=== PATIENT | male | born 1940 | race Caucasian/White ===

== ENCOUNTER 2016-10-07 06:34 | Day surgery (SDC) | payer MEDICARE, MEDICAID ==
[2016-10-07] VITALS (29 sets, daily range): BP systolic 119–165; BP diastolic 69–86; PULSE 62–78; RESP 10–20; Ht 170.2 cm; Wt 94.0 kg
[~2016-10-07] VITALS: Ht 170.2 cm; Wt 94.0 kg
[2016-10-07] MEDS ORDERED: FAMOTIDINE 20 MG TAB PO SCH (07:00)
[2016-10-07] MEDS ORDERED: DIAZEPAM 5 MG TAB PO SCH (07:00)
[2016-10-07] MEDS ORDERED: DIPHENHYDRAMINE 50 MG CAP PO SCH (07:00)
[2016-10-07] MEDS ORDERED: ASPI325T4 PO (07:32)
[2016-10-07] MEDS ORDERED: BENA40TA41 PO (07:32)
[2016-10-07] MEDS ORDERED: CARV25TA79 PO (07:32)
[2016-10-07] MEDS ORDERED: CRES10 PO (07:32)
[2016-10-07] MEDS ORDERED: DOXA4TAB3 PO (07:32)
[2016-10-07] MEDS ORDERED: CILO100T PO (07:33)
[2016-10-07] MEDS ORDERED: HYDR-3672 PO (07:33)
[2016-10-07] MEDS ORDERED: SOD CHLORIDE 0.45% 1,000 ML IV SCH (08:00)
[2016-10-07 08:03] LABS: ADD SCAN DIFF NO
[2016-10-07 08:09] LABS: BASOPHILS % 0.4 % (0.0-2.0); EOSINOPHILS # 0.1 10^3/ul (0.0-0.5); EOSINOPHILS % 1.1 % (0.0-7.0); HEMOGLOBIN 11.6 g/dl (14.0-18.0); LYMPHOCYTES # 1.1 10^3/ul (0.8-2.9); LYMPHOCYTES % 10.8 % (15.0-51.0); MEAN CORPUSCULAR HEMOGLOBIN 29.1 pg (29.0-33.0); MEAN CORPUSCULAR HGB CONC 32.2 g/dl (32.0-37.0); MEAN CORPUSCULAR VOLUME 90.2 fl (82.0-101.0); MEAN PLATELET VOLUME 9.3 fl (7.4-10.4); MONOCYTES % 9.6 % (0.0-11.0); NEUTROPHIL # 7.8 10^3/ul (1.6-7.5); NEUTROPHILS % 77.5 % (39.0-77.0); PLATELET COUNT 201 10^3/UL (140-415); RED BLOOD COUNT 3.99 10^6/ul (4.70-6.10); RED CELL DISTRIBUTION WIDTH 14.7 % (11.5-14.5); WHITE BLOOD COUNT 10.1 10^3/ul (4.8-10.8)
--- NOTE | 2016-10-07 08:18 | RADRPT ---
PROCEDURE: XR Chest. CLINICAL INDICATION: Preoperative TECHNIQUE: Single portable view of the chest was obtained COMPARISON: 10/10/2008 FINDINGS: The heart is enlarged. There is a left-sided pacemaker in place. There is mild left lower lobe atelectasis. The lungs are otherwise clear. There is no pleural effusion or pneumothorax. RPTAT: AA IMPRESSION: Moderate Cardiomegaly. Mild left lower lobe atelectasis. .Bobby Steen MD, MD Date Time Electronically viewed and signed by .Bobby Steen MD, on 10/07/2016 08:18 .S/
[2016-10-07 08:25] LABS: CHOL/HDL RATIO 2.8 RATIO
[2016-10-07 08:29] LABS: CALCIUM 8.3 mg/dl (8.4-10.2); CREATININE 1.16 mg/dl (0.61-1.24); POTASSIUM 3.8 mmol/L (3.5-5.1)
[2016-10-07 08:40] LABS: INR 1.03; PROTIME 13.5 Sec (12.2-14.2); PT RATIO 1.1
[2016-10-07 08:41] LABS: PARTIAL THROMBOPLASTIN TIME 28.4 Sec (25.0-35.0)
[2016-10-07] MEDS ORDERED: HEPARIN 1000 UNITS/ML 10 ML INJ ONE (09:37)
[2016-10-07] MEDS ORDERED: FENTAnyl 50 MCG/ML VIAL ONE (09:37)
[2016-10-07] MEDS ORDERED: VERAPAMIL 5 MG INJ ONE (09:37)
[2016-10-07] MEDS ORDERED: IODIXANOL LOCM 100 ML BTL ONE (09:37)
[2016-10-07] MEDS ORDERED: LIDOCAINE 1% (MDV) 20 ML INJ ONE (09:37)
[2016-10-07] MEDS ORDERED: MIDAZOLAM 1 MG/ML 2 ML INJ ONE (09:37)
[2016-10-07] MEDS ORDERED: NITROGLYCERIN (IC) 100 MCG/ML INJ ONE (09:38)
[2016-10-07] MEDS ORDERED: SOD CHLORIDE 0.9% 500 ML ONE (10:30)
[2016-10-07] MEDS ORDERED: SOD CHLORIDE 0.9% 1,000 ML IV SCH (10:35)
[2016-10-07] MEDS ORDERED: morphine 2 MG INJ IV PRN (11:00)
[2016-10-07] MEDS ORDERED: ONDANSETRON 4 MG INJ IV PRN (11:00)
[2016-10-07] MEDS ORDERED: ACETAMINOPHEN 325 MG TAB PO PRN (11:00)
[2016-10-07] MEDS ORDERED: AL HYDROX/MG HYDROX/SIMETH 30 ML CUP PO PRN (11:00)
--- NOTE | 2016-10-07 11:16 | CARRPT ---
DATE OF PROCEDURE: 10/07/2016 TYPE OF PROCEDURE: 1. Left heart catheterization. 2. Coronary angiography. 3. Left ventriculogram. ATTENDING PHYSICIAN: Brown Morris MD REFERRING PHYSICIAN: Red Peters MD INDICATION: Preoperative patient with abnormal cardiac stress test. TYPE OF ANESTHESIA: Conscious and local. BRIEF HISTORY: Mr. Esteves is a 76-year-old male with history of hypertension, dyslipidemia, who initially presented for preoperative evaluation. The patient underwent a 2D echo revealing a mildly depressed left ventricular ejection fraction and then subsequently on the cardiac stress test reve aling positive anterior ischemia. Given these findings, the patient referred for and presents today in order to undergo left heart catheterization to assess for the possibility of significant obstruc tive coronary artery disease lending to his positive stress test findings and mildly decreased EF by echo. PROCEDURE: After informed consent was obtained, the patient was brought to [facility] cardiac catheterization lab where his right radial area was prepped and draped in the usual teodora rile fashion. Lidocaine 2% was infiltrated into the right radial area in order to achieve adequate anesthesia. Using the modified Seldinger technique, the right radial artery was cannulated and a 6 -[place] arterial sheath was placed. A 6-[place] JL3.5 catheter was used to cannulate the left main c oronary ostium. With contrast injection, multiple views of the left coronary arterial system were o btained. JL3.5 was removed over a guidewire and a JR4 was used to cannulate the right coronary ender rial ostium. With contrast injection, multiple views of the right coronary arterial system obtained . JR4 was removed over a guidewire and a 6-[place] pigtail was passed down the ascending aorta into left ventricle. Left ventricular end-diastolic pressure was measured, 20 mL of contrast was injecte d by power injector. The pigtail catheter was then pulled back across the aortic valve and removed. This completed the procedure. The patient's sheath was removed. TR band was applied. There were no noted complications. FINDINGS: Coronary angiography: Left main 5 mm with a distal 20% stenosis. Circumflex proximally is a 3 mm v essel and has no significant focal stenoses throughout its entirety. Distal branching obtuse margin al 2 mm and then a small left-sided PDA 2 mm with no significant focal stenoses. The LAD proximally is a 3 mm vessel and has a 20% proximal stenosis. Remainder of the LAD is free of significant foca l stenoses, gives off a mid branching diagonal 2 mm with no significant focal stenoses. The right c oronary artery proximally is a 3 mm vessel. Its midportion has a 20% stenosis, codominant vessel, g dee off a 2 mm PDA with no significant focal stenoses. Left ventriculogram revealed a preserved left ventricular ejection fraction of 55%. Left ventricula r end-diastolic pressure of 11 pre-LV gram, 12 post-LV gram. No significant aortic stenosis by grad ient, 1+ mitral regurgitation. TOTAL FLUOROSCOPY TIME: 4.1 minutes. TOTAL CONTRAST: 50 mL. IMPRESSION: 1. Mild nonobstructive coronary artery disease. 2. Preserved left ventricular systolic function. 3. Normal left heart filling pressures. 4. No significant aortic stenosis by gradient. 5. 1+ mitral regurgitation. RECOMMENDATIONS: In light of procedure findings at this time would: 1. Maximize medical management. 2. Aggressive risk factor reduction. 3. The patient has no cardiac contraindication at this time to proceeding with surgery. 4. The patient has a followup appointment in our office scheduled for Tuesday10/12/2016 at which t monty we will discuss the results of this case and ensure that the patient has no post-catheterization complications. Dictated By: BROWN VILLALOBOS/JAZ Conf#: [id number] DID#: [id number]
[2016-10-07] MEDS ORDERED: hydrALAzine 20 MG INJ IV ONE (13:00)
--- NOTE | 2016-10-07 17:39 | RADRPT ---
Vent Rate: 72 bpm RR Interval: 0 msec IA Interval: 236 msec QRS Duration: 158 msec QT Interval: 418 msec QTC Interval: 457 msec P-R-T [place]: 41 - -76 - 64 degrees Electronic ventricular pacemaker Electronically Signed By: Rosalio Garcia [id number]
== END 2016-10-07 15:15 | disposition home or self-care (01) ==
LOC: SDS 06:34
PROVIDERS: ATTEND Internal Medicine
DX: I25.10 Atherosclerotic heart disease of native coronary artery without angina pectoris (principal); R94.31 Abnormal electrocardiogram [ECG] [EKG]; E78.5 Hyperlipidemia, unspecified; I10 Essential (primary) hypertension
CPT/HCPCS: 71010; 80048; 80061; 85025; 85610; 85730; 93005; 93458; C1769; C1887; J0360; J1644; J2250; J3010; J7040; Q9967